=== PATIENT | female | born 1950 | race African-American/Black ===

== ENCOUNTER 2017-12-27 22:09 | Emergency (ER) | payer BC, OTHER ==
[~2017-12-27] VITALS: Ht 165.1 cm; Wt 100.1 kg
[2017-12-27 22:11] VITALS: BP 135/90
[2017-12-27] MEDS ORDERED: METF500T17 PO (22:14)
[2017-12-27] MEDS ORDERED: DIAZEPAM 5 MG TABLET ONE (22:44)
[2017-12-27] MEDS ORDERED: KETOROLAC 30 MG/1 ML ONE (22:44)
[2017-12-27] MEDS ORDERED: DIAZEPAM 5 MG TABLET PO ONE (23:00)
[2017-12-27] MEDS ORDERED: KETOROLAC 30 MG/1 ML IM ONE (23:00)
[2017-12-28 00:30] LABS: CULTURE INDICATED? YES; MICROSCOPIC INDICATED
== END 2017-12-28 01:03 | disposition home or self-care (01) ==
LOC: ED 23:33
DX: S39.012A Strain of muscle, fascia and tendon of lower back, initial encounter (principal); M51.36 Other intervertebral disc degeneration, lumbar region; I10 Essential (primary) hypertension; E11.9 Type 2 diabetes mellitus without complications; E78.5 Hyperlipidemia, unspecified; M19.90 Unspecified osteoarthritis, unspecified site; X50.9XXA Other and unspecified overexertion or strenuous movements or postures, initial encounter; Y93.89 Activity, other specified; Y92.89 Other specified places as the place of occurrence of the external cause; Y99.8 Other external cause status
CPT/HCPCS: 72110; 73502; 81001; 82962; 87086; 96372; 99285; J1885; J7512

== ENCOUNTER 2020-06-25 09:55 | Emergency (ER) | payer BC ==
[~2020-06-25] VITALS: Ht 170.2 cm; Wt 98.5 kg
[~2020-06-25 09:55] MED LIST: METF500T17 PO
--- NOTE | 2020-06-25 10:10 | NUR ---
PT BIB [facility] W CO INTERMITTENT, 10/10 EPIGASTRIC PAIN THAT RADIATES TO RUQ "I FEEL LIKE I GOT PUNCHED IN THE RIBS". SHE REPORTS SIMILAR EPISODES OF EPIGASTRIC PAIN OVER THE LAST TWO WEEKS. PAIN RESOLVES WITHOUT INTERVENTION. ADMITS ASSOCIATED DIZZINESS AND SHORTNESS OF BREATH "BECAUSE OF THE PAIN". PT DENIES CHEST PAIN, N/V. TAKES DAILY MOTRIN FOR BILAT KNEE PAIN, THOUGH DENIES BLOODY EMESIS OR STOOL. HX DM2 AND HTN. BP/SPO2/ECG MONITORIN IN PLACE. EKG COMPLETED UPON ARRIVAL.
[2020-06-25] MEDS ORDERED: ONDANSETRON 2MG/ML, 2ML IVPush ONE (10:30)
[2020-06-25] MEDS ORDERED: SODIUM CHLORIDE FLUSH 10ML SYR IVF ONE (10:30)
--- NOTE | 2020-06-25 10:45 | NUR ---
US AT BEDSIDE. PT CONTINUES TO DENY NEED FOR PAIN/NAUSEA MEDICATIONS.
[2020-06-25] MEDS ORDERED: LISI2.5T PO (10:46)
--- NOTE | 2020-06-25 11:17 | NUR ---
PT AMBULATED STEADILY TO BATHROOM TO PROVIDE UA. UA COLLECTED AND SENT TO LAB.
[2020-06-25 11:26] LABS: ALANINE AMINOTRANSFERASE 70 U/L (12-78); ALBUMIN 3.7 g/dL (3.4-5.0); ANION GAP 7 mmol/L (5-15); CALCIUM 9.3 mg/dL (8.5-10.1); CHLORIDE 110 mmol/L (98-107); CREATININE 0.82 mg/dL (0.55-1.02)
[2020-06-25 11:27] LABS: BASOPHILS % (AUTO) 0 % (0-1); EOSINOPHILS % (AUTO) 1 % (1-7); LYMPHOCYTES % (AUTO) 17 % (22-44); MEAN CORPUSCULAR HEMOGLOBIN 29.5 pg (27.0-34.8); MEAN CORPUSCULAR HGB CONC 33.3 g/dL (32.4-35.8); MEAN PLATELET VOLUME 8.7 fL (7.4-10.4); MONOCYTES % (AUTO) 6 % (2-9); NEUTROPHILS % (AUTO) 76 % (42-75); PLATELET COUNT 312 x10^3/uL (130-400); RED BLOOD COUNT 4.43 x10^6/uL (3.82-5.3)
[2020-06-25 11:30] LABS: ALKALINE PHOSPHATASE 82 U/L (45-117); BILIRUBIN,TOTAL 0.6 mg/dL (0.2-1.0); TOTAL PROTEIN 7.8 g/dL (6.4-8.2); TROPONIN I < 0.015 ng/mL (0.000-0.045)
[2020-06-25 11:31] LABS: MD NO
[2020-06-25 11:31] LABS: MICROSCOPIC NOT IND
[2020-06-25 12:04] VITALS: BP 119/76
--- NOTE | 2020-06-25 12:04 | NUR ---
CHART UP FOR RECHECK. PT/SON UPDATED TO POC (RECHECK/DISPO) AND DEMONSTRATES UNDERSTANDING.
--- NOTE | 2020-06-25 12:42 | NUR ---
DC EDUCATION PROVIDED, PT DEMONSTRATES UNDERSTANDING. PT TRANSFERED SELF TO WHEELCHAIR WO ASSISTANCE. WHEELED TO DC WITH RN AND GRANDSON. [facility]SON TO TRANSPORT PT HOME.
== END 2020-06-25 12:44 | disposition home or self-care (01) ==
LOC: ED 11:47
DX: K80.20 Calculus of gallbladder without cholecystitis without obstruction (principal); R10.13 Epigastric pain; I10 Essential (primary) hypertension; E11.9 Type 2 diabetes mellitus without complications; E78.5 Hyperlipidemia, unspecified; R94.31 Abnormal electrocardiogram [ECG] [EKG]; Z87.891 Personal history of nicotine dependence
CPT/HCPCS: 36415; 76700; 80053; 81003; 83690; 84484; 85025; 93005; 99285